=== PATIENT | male | born 1945 | race Caucasian/White ===

== ENCOUNTER 2016-07-24 10:33 | Emergency (ER) | payer MEDICARE, BC ==
[2016-07-24] MEDS ORDERED: ASPIRIN 81 MG CHEW TAB ONE (11:08)
== END 2016-07-24 15:50 | disposition home or self-care (01) ==
LOC: ER 10:33
CPT/HCPCS: 36415; 70450; 71010; 80053; 82550; 83735; 84484; 85025; 85610; 85730; 93005